=== PATIENT | male | born 1945 | race African-American/Black ===

== ENCOUNTER 2024-04-21 08:21 | Emergency (ER) | payer OTHER ==
[~2024-04-21] VITALS: Ht 177.8 cm; Wt 90.0 kg
[2024-04-21 08:24] VITALS: O2SAT 98
[2024-04-21] MEDS: SODIUM CHLORIDE 0.9% 1000ML BAG (SEPSIS BOLUS) IV ONE (08:49)
[2024-04-21] MEDS: MORPHINE SULFATE 4 MG/ML INJ (FOR IV/IM USE) IV STA (08:54)
[2024-04-21] MEDS: PIPERACILLIN/TAZO 3.375G/50ML 50 ML IV ONE (09:00)
[2024-04-21 09:01] LABS: DIFFERENTIAL COMMENT 1; HEMATOCRIT. 49.9 % (42.0-52.0); HEMOGLOBIN. 15.5 g/dL (14.0-18.0); MEAN CORPUSCULAR HEMOGLOBIN 28.1 pg (28.0-32.0); MEAN CORPUSCULAR VOLUME 90.6 fL (80.0-94.0); MEAN PLATELET VOLUME 8.7 fl (7.4-10.4); PLATELET 446 x1000/uL (130-400); RED BLOOD CELL COUNT 5.51 mill/uL (4.7-6.1); RED CELL DISTRIBUTION WIDTH 15.2 % (11.6-14.6); WHITE BLOOD COUNT 18.6 x1000/uL (4.5-11.0)
[2024-04-21 09:09] LABS: CARBON DIOXIDE 23 mEq/L (21-32); CHLORIDE 102 mEq/L (98-107); POTASSIUM 5.6 mEq/L (3.5-5.1); SODIUM 133 mEq/L (136-145)
[2024-04-21 09:10] LABS: CALCIUM 9.3 mg/dL (8.7-10.4)
[2024-04-21 09:11] LABS: INR 1.1; PROTHROMBIN TIME 12.4 sec (9.6-11.0)
[2024-04-21 09:15] LABS: CREATININE 2.4 mg/dL (0.6-1.3); GLUCOSE 200 mg/dL (70-105); UREA NITROGEN BLOOD 23 mg/dL (9-23)
[2024-04-21 09:16] LABS: ALANINE AMINOTRANSFERASE < 7 IU/L (10-49); ASPARTATE AMINOTRANSFERASE 11 IU/L (<34)
[2024-04-21 09:17] LABS: ALBUMIN 3.5 g/dL (3.2-4.8); BILIRUBIN DIRECT 0.2 mg/dL (<=3.0); BILIRUBIN TOTAL 0.7 mg/dL (0.1-1.0); PROTEIN TOTAL 5.8 g/dL (6.0-8.3)
[2024-04-21 09:26] LABS: LACTIC ACID 4.1 mmol/L (0.4-2.0)
[2024-04-21 09:58] LABS: PLATELET ESTIMATE SLIGHTLY INCREASED
[2024-04-21 11:26] LABS: LACTIC ACID 4.5 mmol/L (0.4-2.0)
[2024-04-21] MEDS: AZITHROMYCIN 500MG/250ML 250 ML IV ONE (11:44)
[2024-04-21 12:49] LABS: CHLORIDE 108 mEq/L (98-107); POTASSIUM 5.3 mEq/L (3.5-5.1); SODIUM 135 mEq/L (136-145)
[2024-04-21 12:50] LABS: CALCIUM 8.3 mg/dL (8.7-10.4); CARBON DIOXIDE 19 mEq/L (21-32)
[2024-04-21 12:55] LABS: GLUCOSE 178 mg/dL (70-105); UREA NITROGEN BLOOD 19 mg/dL (9-23)
[2024-04-21 12:57] LABS: ALANINE AMINOTRANSFERASE < 7 IU/L (10-49); ALBUMIN 2.7 g/dL (3.2-4.8); ASPARTATE AMINOTRANSFERASE 11 IU/L (<34); BILIRUBIN TOTAL 0.6 mg/dL (0.1-1.0); PROTEIN TOTAL 4.7 g/dL (6.0-8.3)
[2024-04-21 13:02] LABS: LACTIC ACID 4.2 mmol/L (0.4-2.0)
[2024-04-21] MEDS: LACTATED RINGERS 1,000 ML IV SCH (15:00)
[2024-04-21] MEDS ORDERED: IPRATROPIUM/ALBUTEROL 0.5-3(2.5)MG/3ML NEB NEB PRN (15:00)
[2024-04-21] MEDS ORDERED: MEROPENEM 1,000 MG in SODIUM CHLORIDE 0.9% 100 ML IV SCH (15:00)
[2024-04-21] MEDS ORDERED: ACETAMINOPHEN 325MG TABLET PO PRN ×2 (15:00)
[2024-04-21] MEDS ORDERED: MAGNESIUM/ALUMINUM HYDROXIDE/SIMETHICONE 30ML UDC PO PRN (15:00)
[2024-04-21] MEDS ORDERED: GUAIFENESIN 200MG/10ML SUGAR FREE UDC PO PRN (15:00)
[2024-04-21] MEDS ORDERED: CLONIDINE 0.1MG TABLET PO PRN (15:00)
[2024-04-21] MEDS ORDERED: ONDANSETRON HCL 4MG/2ML INJ IV PRN (15:00)
[2024-04-21] MEDS ORDERED: ZOLPIDEM TARTRATE 5MG TABLET PO PRN (15:00)
[2024-04-21] MEDS ORDERED: NITROGLYCERIN 0.4MG TABLET SL SL PRN (15:00)
[2024-04-21] MEDS ORDERED: DOCUSATE SODIUM 100MG CAPSULE PO PRN (15:00)
[2024-04-21] MEDS: LACTATED RINGERS 1,800 ML IV NR (15:29)
[2024-04-21 15:34] LABS: T4 FREE 1.02 ng/dL (0.89-1.76); THYROID STIMULATING HORMONE 10.19 uIU/mL (0.55-4.78)
[2024-04-21 15:35] LABS: VITAMIN B12 SERUM 678 pg/mL (211-911)
[2024-04-21 15:41] VITALS: BP 143/68; PULSE 111; RESP 20; TEMP 36.16956; O2SAT 95
[2024-04-21] MEDS ORDERED: VANCOMYCIN 2,000 MG in DEXT 5% WATER 500 ML IV NR (16:00)
[2024-04-21] MEDS ORDERED: FAMOTIDINE 20MG TABLET PO SCH (16:00)
[2024-04-21] MEDS ORDERED: MEROPENEM 1G/100ML IV SCH (17:00)
[2024-04-21] MEDS ORDERED: ENOXAPARIN 40MG/0.4ML SYR SUBCUT SCH (17:00)
[2024-04-21] MEDS ORDERED: ASCORBIC ACID 500 MG TABLET PO SCH (21:00)
[2024-04-22] MEDS ORDERED: ZINC SULFATE 220 MG ( 50 ) CAPSULE PO SCH (09:00)
== END 2024-04-21 16:01 | disposition short-term general hospital (02) ==
LOC: ER 08:21 → CANBEDREQ 13:25 → ER 16:01
DX: A41.9 Sepsis, unspecified organism (principal); R65.20 Severe sepsis without septic shock; E11.9 Type 2 diabetes mellitus without complications; J18.9 Pneumonia, unspecified organism
CPT/HCPCS: 99291; 74176; 96365; 96367; 96361; 96375; 80061; 80053; 82607; 83036; 84439; 84443; 85025; 85610; 86850; 86900; 86901; 87040; 84145; 71045; 93005; 80076; 80048; 83605; 36415; J0456; J2543; J3370; J2270; J7060; J7030; J2185